=== PATIENT | female | born 1960 | race Two or more races ===

== ENCOUNTER → 2018-12-13 | Outpatient (CLI) | payer OTHER ==
[2016-04-11 14:46] VITALS: BP 138/73
--- NOTE | 2018-12-13 10:37 | RAD ---
DATE: 12/13/2018 EXAM: MAMMO GOYO SCREENING BILATERAL HISTORY: Routine screening COMPARISON: 08/28/2016 This study was interpreted with the benefit of Computerized Aided Detection (CAD). Breast Density: HETERO The breast parenchyma is heterogenously dense, which could reduce sensitivity of mammography. Breast parenchyma level C. FINDINGS: 2-D and 3-D tomosynthesis imaging was performed in CC and MLO projections. The fibroglandular tissues are heterogeneous in a somewhat nodular pattern. No spiculated mass or architectural distortion is seen. Benign type calcifications are present. No suspicious microcalcifications have developed. IMPRESSION: There is no mammographic evidence of malignancy in either breast. BI-RADS CATEGORY: 2 BENIGN FINDING(S) RECOMMENDED FOLLOW-UP: 12M 12 MONTH FOLLOW-UP PQRS compliance statement: Patient information was entered into a reminder system with a target due date for the next mammogram. Mammography is a sensitive method for finding small breast cancers, but it does not detect them all and is not a substitute for careful clinical examination. A negative mammogram does not negate a clinically suspicious finding and should not result in delay in biopsying a clinically suspicious abnormality. "Our facility is accredited by the [employer] Mammography Program."
== END | disposition home or self-care (01) ==
LOC: MAMMO 09:34
PROVIDERS: ATTEND Family Medicine
DX: Z12.31 Encounter for screening mammogram for malignant neoplasm of breast (principal)
CPT/HCPCS: 77063; 77067

== ENCOUNTER → 2019-11-17 | Outpatient (CLI) | payer OTHER ==
[2016-04-11 14:46] VITALS: BP 138/73
--- NOTE | 2019-11-17 14:25 | RAD ---
KNEE RIGHT 2V DATE: 11/17/2019 12:00 AM INDICATION: Right knee pain COMPARISON: None. FINDINGS: Bones: There is no evidence of acute fracture or dislocation. Joints: The joint spaces are normal. There is no joint effusion. Miscellaneous: None. IMPRESSION: No evidence of acute fracture. Electronically signed by: Eddy Huang MD (11/17/2019 2:22 PM) [id number]
== END | disposition home or self-care (01) ==
LOC: RAD 10:18
PROVIDERS: ATTEND Radiology Therapeutic Radiology
DX: Z02.71 Encounter for disability determination (principal); M25.561 Pain in right knee
CPT/HCPCS: 73560